=== PATIENT | male | born 1950 | race Caucasian/White ===

== ENCOUNTER → 2023-03-30 | Outpatient (CLI) | payer OTHER, SELFPAY ==
--- NOTE | 2023-03-30 | IMM_PTH ---
PATIENT: JOHANNE BELLO LOC: [facility] U#:[id number] AGE/SX: 72/M ROOM: RE03/30/[address]: Dr. Thad Haider MD : 1950 BED: DIS: 03/30/2023 SPEC #: [id number] RECD: 03/31/23 14:11 STATUS: HUMPHREY REDestini #: [id number] ZABRINA: 03/30/23 00:[address]: Thad Haider DEPT: IMMUNOHISTOCHEMISTRY RECD BY: Bianka Newby Tissues: Skin of nose, NOS Procedures: Vimentin (add) Pankeratin (initial) MELAN-A (add) S-100 (add) PHYSICIAN & INSTITUTION [place] [id number] SPECIMEN INFORMATION: Tissue Source: Nasal skin lesion Clinical Info: Nasal lesion Specimen Number: [id number] CPT code: 49758, 80501 x3 METHODOLOGY: Deparaffinized sections of prefer/formalin-fixed tissue or PAP/DQ stained slides are incubated with monoclonal/polyclonal antibodies/oligonucleotide probes. Localization is made via biotin free immunoperoxidase method. Appropriate controls are performed and reacted as expected. Results on target cell population are indicated in the following table: RESULTS: ANTIBODY / CLONE RESULT AE1-3 (AE1/AE3/PCK26) negative S-100 (4C4.9) negative Vimentin (V9) positive Melan A (A103) negative These tests were developed and their performance characteristics determined by [facility]. They may not have been cleared or approved by the U.S. Food and Drug Administration. The FDA has determined that such clearance or approval is not necessary. The above immunohistochemical/dualISH markers are ordered and reviewed by the Pathologist. INTERPRETATION: Nasal skin lesion, biopsy: - Consistent with sebaceous hyperplasia AM:radha 04/01/23
--- NOTE | 2023-03-30 08:20 | LES_PTH ---
PATIENT: JOHANNE BELLO LOC: [facility] U#:[id number] AGE/SX: 72/M ROOM: RE03/30/[address]: Dr. Thad Haider MD : 1950 BED: DIS: 03/30/2023 SPEC #: [id number] RECD: 03/30/23 11:01 STATUS: HUMPHREY RONNIE #: [id number] ZABRINA: 03/30/23 08:[address]: Thad Haider DEPT: SURGICAL PATHOLOGY RECD BY: Darling Smith Tissues: Skin of nose, NOS Procedures: Surgery Specimen Level IV HEADER OPERATION: Excisional lesion on nose PRE-OP DIAGNOSIS: Nasal lesion TISSUE SUBMITTED: Nose tissue MICROSCOPIC DIAGNOSIS Nasal skin lesion, biopsy: Consistent with sebaceous hyperplasia. Solar elastosis. See comment. AM:dena 03/31/2023 COMMENT Immunohistochemistry ([id number]) supports the above diagnosis. Clinical correlation is suugested. MICROSCOPIC DESCRIPTION Slides are reviewed. GROSS DESCRIPTION Received in fixative is one container labeled with the patient's name and designated nose tissue. The specimen consists of an ellipse of light acosta excised skin measuring 1.3 x 0.6 x 0.2 cm. The specimen is inked, serially sectioned and totally submitted in one cassette. / AM:dena 03/30/2023 :5 [facility]: [id number]
== END | disposition home or self-care (01) ==
LOC: LABSPEC 11:44
PROVIDERS: PCP Surgery; Visit Provider Surgery
DX: L57.8 Other skin changes due to chronic exposure to nonionizing radiation (principal); J34.89 Other specified disorders of nose and nasal sinuses
CPT/HCPCS: 88305; 88341; 88342

== ENCOUNTER → 2024-03-30 | Outpatient (CLI) | payer SELFPAY ==
--- NOTE | 2024-03-30 14:19 | ST.MBS ---
Modified Barium Swallow Patient Information Study Date: 03/30/24 Study Time: 13:15 Direct Billable Minutes: 80 Total Minutes procedure & reportin Diagnosis: Dysphagia R13.10 Referring Physician: Zia English Reason for Referral: Objectively assess swallow function, assess risk for aspiration, and determine recommendations for least restrictive diet textures and compensatory strategies to improve safety of swallow. Medical History: PMH: Parkinson's disease, skin lesion of face. Patient reports coughing with oral intake, mostly foods, for ~6 months. He reports consuming regular textures / thin liquids. He denies hx of PNA. He was referred for MBSS to assess concerns for aspiration. Per patient, he is currently participating in outpatient speech therapy at [facility] and has started an exercise program to strengthen his swallow. Current Diet Ordered: Regular textures / Thin liquids Dentition: Natural Teeth Mental Status: WNL Penetration-Aspiration Scale Penetration-Aspiration Scale: OBJECTIVE ASSESSMENT OF SWALLOW FUNCTION (QUANTITATIVE ? PER TRIAL): PENETRATION / ASPIRATION SCALE (KENNEDY): 1 = does not enter airway 2 = enters airway/above vocal folds/ejected 3 = enters airway/above vocal folds/not ejected 4 = enters airway/contacts vocal folds/ejected 5 = enters airway/contacts vocal folds/not ejected 6 = enters airway/below vocal folds/ejected 7 = enters airway/below vocal folds/not ejected despite effort 8 = enters airway/below vocal folds/no effort VIDEOFLOROSCOPIC SCALE SCORE (KENNEDY): Grade I = aspiration of material that has penetrated into the laryngeal vestibule, intact cough reflex Grade II = aspiration < 10 % of the bolus, intact cough reflex Grade III = aspiration of < 10 % of the bolus, reduced cough reflex or aspiration of > 10 % of the bolus, intact cough reflex Grade IV = aspiration of > 10 % of the bolus, reduced cough reflex Penetration-Aspiration Scale Score Thin Liquid via teaspoon: Result: 8= enters airway/below vocal folds/no effort Thin Liquid via small single sip: cup: Result: 5= enters airways/contacts vocal folds/not ejected Auberry Thick Liquid via small single sip: cup: Result: 8= enters airway/below vocal folds/no effort Comment: Silent post prandial aspiration of residues of previous trial observed prior to swallow onset of this trial, which also resulted in silent aspiration. Cued cough and re-swallow after the trial. Pudding via teaspoon: Result: 1= does not enter airway Comment: Cued chin tuck after the swallow, which cleared ~50% of pharyngeal residue from the vallecula. 1/4 Cookie: Result: 1= does not enter airway Comment: Cued chin tuck after the swallow, which cleared ~50% of pharyngeal residue from the vallecula. Thin Liquid via small single sip: cup Chin tuck: Result: 2= enter airway/above vocal folds/ejected Thin Liquid via small single sip: cup Chin tuck Trial 2: Result: 5= enters airways/contacts vocal folds/not ejected Comment: Cued cough and re-swallow after the trial Thin Liquid via small single sip: cup Chin tuck Trial 3: Result: 2= enter airway/above vocal folds/ejected Comment: TOLL SETTLEMENT CLERK cued the patient for deeper chin tuck due to partial chin tuck during previous trial. Oral Phase Labial Seal: No Labial Escape Tongue Control During Bolus Hold: Posterior escape of less than half of bolus Bolus Preparation/Mastication: Slow prolonged chewing/mashing with complete recollection Bolus Transport/Lingual Motion: Repetitive/disorganized tongue motion Oral Residue: Residue collection on oral structures Pharyngeal Phase Initiation of Pharyngeal Swallow: Bolus head at posterior laryngeal surgace of epiglottis Soft Palate Elevation: Trace column of contrast/air between soft palate and pharyngeal wall Laryngeal Elevation: Partial superior movement thyroid cart/partial apprx aryt-epig petiole Anterior Hyoid Excursion: Partial anterior movement Epiglottic Movement: Partial inversion (inconsistent) Laryngeal Vestibule Closure at Height of Swallow: Incomplete; narrow column of air/contrast in laryngeal vestibule Pharyngeal Stripping Wave: Present - diminished Pharyngoesophageal Segment Opening: Parital distension and partial duration; parital obstruction of flow Tongue Base Retraction: Wide column of contrast between tongue base & post. pharyngeal wall Pharyngeal Residue: Majority of contrast within or on pharyngeal structures (>50% of pudding and cookie after the first swallow) Esophageal Phase Esophageal Clearance: Complete clearance Diagnosis/Impression Diagnosis: Moderate oropharyngeal dysphagia R13.12 Impression: The oral phase is primarily marked by... -Min premature posterior loss of thin liquids to the posterior surface of the epiglottis. -Lingual pumping for A-P transport. -Slowed but complete mastication of cookie. -Piecemeal deglutition, patient required multiple swallows to clear pudding and cookie from oral cavity. The pharyngeal phase is primarily marked by... -Decreased anterior hyoid excursion, laryngeal elevation, and inconsistent epiglottic inversion resulting in decreased airway closure during the swallow. SILENT aspiration of thin liquids via tsp, thin liquids via cup (post prandial), and mildly thick liquids via cup. Chin tuck and cough and re-swallow were somewhat effective in decreasing risk for aspiration. Patient requires additional training re: proper execution of chin tuck. -Decreased tongue base retraction and pharyngeal stripping wave with >50% of pudding and cookie trials in the vallecula after the swallow. Chin tuck was most effective in clearing pharyngeal residues from the vallecula. Recommendations Diet: Regular Textures (Easy to Chew textures - IDDSI Level 7) and Thin Liquids Compensatory Strategies: Small Bites, Small Sips (Intermittent hard cough and re-swallow), Slow Rate, Chin Tuck (ALL BITES/SIPS) and Sitting upright Recommend Repeat Modified Barium Swallow: Yes (Recommend minimum annual MBSS due to progressive nature of PD and risk for worsening swallow with disease progression) Need for Skilled Speech Therapy Services: Yes Comment: -Train the patient in use of strategies to decrease risk for aspiration. -Ongoing assessment of diet tolerance of recommended textures. -Train the patient in oropharyngeal exercise program to improve lingual strength/coordination, airway closure, tongue base retraction, and pharyngeal stripping wave (lingual resistance, Kim, Rafaela, Effortful). Consider EMST. Education Completed: 1. Described result of evaluation., 2. Pt understands evaluation & agrees with goals and treatment plan. and 7. Pt requires further education on strategies & risks. Status Active ST Patient: Active Contact Information [facility]:: Suni Burton M.A. [facility]-TOLL SETTLEMENT CLERK? Speech-Language Pathologist?? [facility] [address] [place] [address]? [email or web address]?? [phone]
== END | disposition home or self-care (01) ==
PROVIDERS: PCP Family Medicine; Referring Provider Psychiatry & Neurology Neurology; Visit Provider Psychiatry & Neurology Neurology
DX: R13.10 Dysphagia, unspecified (principal); G20.C Parkinsonism, unspecified
CPT/HCPCS: 74230; 92611